=== PATIENT | female | born 1985 | race Hispanic/Latino ===

== ENCOUNTER 2021-06-11 16:13 | Emergency (ER) | payer OTHER, SELFPAY ==
--- NOTE | ~2021-06-11 | XR_ITS ---
EXAMINATION: XR chest 1V portable INDICATION: Shortness of breath TECHNIQUE: Portable AP chest at 2040 hours COMPARISON: None available FINDINGS: There are minimal opacities of the lung bases. No pleural effusion or pneumothorax is ident ified. The cardiomediastinal silhouette is normal. IMPRESSION: 1. Minimal bibasilar airspace opacities, consistent with atelectasis versus pneumonia. Reviewed, dictated and finalized at location F. ORATE CONSULTANT IMPRESSION: 1. Minimal bibasilar airspace opacities, consistent with atelectasis versus pne umonia.
--- NOTE | ~2021-06-11 | CT_ITS ---
EXAMINATION: CT brain wo con DATE: 06/11/2021 21:43 INDICATION: Headache. TECHNIQUE: Computed tomography (CT) of the head was performed without intravenous contrast. The dose- length product was 605.33 mGy-cm. Automated exposure control and iterative reconstruction technique w ere employed. COMPARISON: None FINDINGS: No acute intracranial hemorrhage, infarction, mass or mass effect. No ventriculomegaly or m idline shift. Basilar cisterns are patent. Paranasal sinuses and mastoids are pneumatized. Small righ t mastoid effusion. No depressed skull fractures. IMPRESSION: 1. No acute intracranial abnormality. Reviewed, dictated and finalized at location A. T DUMPER
[2021-06-11 16:17] VITALS: BP 185/120; PULSE 105; RESP 20; TEMP 36.7; O2SAT 99
[2021-06-11 20:00] VITALS: BP 144/103; PULSE 95; RESP 16; O2SAT 98
--- NOTE | 2021-06-11 20:42 | ECG_ITS ---
Measurements Intervals [place] Rate: 83 P: 42 AK: 144 QRS: 0 QRSD: 109 T: 19 QT: 362 QTc: 426 Interpretive Statements SINUS RHYTHM POOR R WAVE PROGRESSION, ANTERIOR LEADS BORDERLINE ECG Electronically Signed On 06-12-2021 6:09:55 [employer]EL DIST[employer] by Byron Russell D.O.
--- NOTE | 2021-06-11 20:47 | ED.GENADULT ---
HPI - General Adult General Chief complaint: Anxiety <ARTUR Tejada BC - Last Filed: 06/11/21 22:07> Stated complaint: Anxiety <ARTUR Tejada BC - Last Filed: 06/11/21 22:07> Time Seen by Provider: 06/11/21 19:24 <BLANYE TejadaBEVERLEY Agrawal - Last Filed: 06/11/21 22:07> Source: patient <ARTUR Tejada BEVERLEY - Last Filed: 06/11/21 22:07> Mode of arrival: ambulatory <ARTUR Tejada BEVERLEY - Last Filed: 06/11/21 22:07> Limitations: no limitations <ARTUR Tejada BC - Last Filed: 06/11/21 22:07> History of Present Illness HPI narrative: Patient presents for evaluation of shortness of breath. Symptom onset last evening. She indicates she was sitting in a chair when she felt dizzy and experienced SOB. Symptoms have persisted although have been intermittent. She has experienced nausea without vomiting. She has experienced a headache for the past two weeks. She states pain is in frontal region and bilateral retro-orbital region and feels like a pressure . She rates her pain 8/10 in severity. She has a hx of headaches but current headache is not consistent with headaches she has experienced in the past. She reports photophobia and also has experienced fatigue. She denies any significant cough, body aches and denies chest pain. However she has experienced an intermittent burning sensation in her chest. She had Covid approximately 6 months ago. She has received both of her Covid vaccinations and her booster. No recent sick contacts to her knowledge. She denies any urinary symptoms or change in bowel pattern. <BLAYNE TejadaBEVERLEY Agrawal - Last Filed: 06/11/21 22:07> Related Data Allergies/adverse reactions: Allergies Allergy/AdvReac Type Severity Reaction Status Date / Time No Known Allergies Allergy Verified 06/11/21 20:02 <Dhiraj Arnold Yudy BEVERLEY SIDDIQUI - Last Filed: 06/11/21 22:07> Review of Systems Review of Systems: CONSTITUTIONAL: Reports fatigue. Denies fever, chills, or sweats. EYES: Reports photophobia. Denies visual disturbance. ENT: Denies rhinorrhea, congestion, sore throat, or otalgia. CARDIOVASCULAR: Reports burning sensation chest but denies chest pain per se. Denies palpitations, or edema. RESPIRATORY: Reports shortness of breath. Denies cough. . GASTROINTESTINAL: Reports nausea. Denies vomiting, diarrhea, abdominal pain GENITOURINARY: Denies dysuria or hematuria. SKIN: Denies rash or itching. MUSCULOSKELETAL: Denies back pain, joint pain, or myalgia. NEUROLOGIC: Reports headache, dizziness, generalize weakness PSYCHIATRIC: Denies anxiety or depression. <ARTUR Tejada BC - Last Filed: 06/11/21 22:07> PMFSH Past Medical History Medical History: Medical History (Updated 06/12/21 @ 00:02 by Carlyle Baez MD) Diabetes Hyperlipidemia Hypertension <ARTUR Tejada BC - Last Filed: 06/11/21 22:07> Surgical History Surgical History: Surgical History No pertinent past surgical history <ARTUR Tejada BC - Last Filed: 06/11/21 22:07> Family History Family History: Family History Mother No pertinent family history <ARTUR Tejada BC - Last Filed: 06/11/21 22:07> Social History Social History: Social History (Updated 06/11/21 @ 20:53 by ARTUR Tejada BC) Smoking status: Never smoker Substance use: never Living arrangements: with family Gender identity (if verbalized by the patient): Female Sexual Orientation (if Verbalized by the Patient): Straight or Heterosexual Spiritual care concerns: No <ARTUR Tejada BC - Last Filed: 06/11/21 22:07> Exam Narrative: GENERAL: Sitting in room with lights off. Well-appearing, well-nourished, and in no acute distress. HEAD: Normocephalic, atraumatic. EYES:
[2021-06-11] MEDS: SODIUM CHLORIDE 0.9% IV 1,000 ML 999 ML IV CONT (21:54)
[2021-06-11] MEDS: ACETAMINOPHEN/BUTALBITAL/CAFFEINE 325-50-40 MG TABLET (FIORICET) 1 TAB PO (21:55)
[2021-06-11] MEDS: FAMOTIDINE 20 MG/2 ML VIAL IV PUSH (21:55)
[2021-06-11] MEDS: ONDANSETRON INJ 4 MG/2 ML VIAL IV PUSH (21:55)
[2021-06-11 22:00] VITALS: BP 127/93; PULSE 84; RESP 16; O2SAT 98
[2021-06-11 22:07] LABS: Basophils Percent Auto 0.2 % (0.2-1.2); Eosinophils Percent Auto 0.1 % (0-4.4); Hemoglobin 16.4 g/dL (12.0-15.0); Immature Granulocyte Absolute 0.15 K/mm3 (0.00-0.031); Immature Granulocyte Percent A 1.4 % (0-0.5); Lymphocytes Absolute Auto 0.95 K/mm3 (0.9-3.2); Lymphocytes Percent Auto 8.7 % (18.3-44.2); Mean Corpuscular HGB Conc 32.2 g/dl (32-36); Mean Corpuscular Hemoglobin 28.9 pg (26-34); Mean Corpuscular Volume 89.8 fl (80-100); Mean Platelet Volume 9.9 fl (7.4-10.4); Monocytes Absolute Auto 0.8 K/mm3 (0.1-0.6); Monocytes Percent Auto 6.9 % (2.6-8.5); Neutrophils Percent Auto 82.7 % (45.5-73.1); Platelet Count Result 251 k/mm3 (150-375); Red Blood Count 5.68 M/mm3 (4.2-5.4); Red Cell Distribution Width 14.2 % (11.5-14.5); White Blood Count 10.9 K/mm3 (4.5-10.0)
[2021-06-11 22:16] LABS: Alanine Aminotransferase 22 U/L (4-35); Albumin Level 4.6 g/dL (3.5-5.1); Alkaline Phosphatase 86 U/L (38-126); Anion Gap 12 mmol/L (8-16); Aspartate Amino Transferase 21 U/L (14-36); Bilirubin,Total 0.9 mg/dL (0.2-1.3); Blood Urea Nitrogen 12 mg/dL (7-17); Calcium 9.5 mg/dL (8.4-10.2); Carbon Dioxide 26 mmol/L (22-30); Chloride 94 mmol/L (98-107); Estimated CRCL calculation 133 ml/min; Estimated Glomerular Filt Rate > 60; Glucose 168 mg/dL (65-110); Potassium 3.4 mmol/L (3.4-5.0); Sodium 132 mmol/L (137-145)
[2021-06-11 22:28] LABS: Troponin I < 0.012 ng/mL (0.000-0.034)
[2021-06-11 22:36] LABS: Lipase 105 U/L (23-300)
[2021-06-11 22:48] LABS: SARS-CoV-2 RNA PCR Negative
[2021-06-11 23:28] VITALS: BP 118/87; PULSE 88; RESP 15; O2SAT 98
--- NOTE | 2021-06-11 23:28 | PC.NURSE ---
Assumed care of pt at this time, pt is alert and upright on stretcher w/ VSS. Discussed POC and given collection cup for ordered U/A. Pt family member at bedside.
[2021-06-11 23:52] LABS: Add Urine Microscopic? YES; Appearance Urine Cloudy (Clear); Bacteria Urine Trace /hpf; Bilirubin Urine Negative (Negative); Blood Urine Negative (Negative); Color Urine Yellow (Yellow); Glucose Urine UA 3+ mg/dL (Negative); Ketones Urine 1+ mg/dL (Negative); Leukocyte Esterase Ur 2+ LEU/UL (Negative); Mucus Urine Rare /lpf; Nitrate Urine Negative (Negative); Protein Urine Negative (Negative); Specific Grav Ur 1.008 (1.001-1.035); Squamous Epithelial Cell Urine Many /hpf (Few); Urobilinogen Urine Negative mg/dL (<2.0)
== END 2021-06-12 00:14 | disposition home or self-care (01) ==
PROVIDERS: Nurse Practitioner; Emergency Provider Emergency Medicine; PCP Physician Assistant
DX: J18.9 Pneumonia, unspecified organism (principal); R42 Dizziness and giddiness; Z86.16 Personal history of COVID-19; E78.5 Hyperlipidemia, unspecified; E11.9 Type 2 diabetes mellitus without complications; I10 Essential (primary) hypertension
CPT/HCPCS: 36415; 70450; 71045; 80053; 81001; 81025; 83690; 84484; 85025; 87086; 87088; 87804; 93005; 96361; 96374; 96375; 99284; A9270; C9803; J2405; J7030; U0003; U0005